=== PATIENT | female | born 1990 | race Caucasian/White ===

== ENCOUNTER 2021-10-16 | Inpatient (IN) | payer OTHER ==
[~2021-10-16] VITALS: Ht 160 cm; Wt 92.1 kg
[2021-10-16 01:40] LABS: HCT 34.6 % (37.0-47.0); HGB 11.1 g/dl (12.5-16.0); MCH 24.1 pg (25.0-31.0); MCHC 32.1 g/dL (32.0-36.0); MCV 75.1 fL (78.0-100.0); RBC 4.61 M/uL (4.20-5.40); RDW 16.8 % (11.5-14.0)
[2021-10-16 01:40] LABS: ECSTASY (MDMA) NEGATIVE (NEGATIVE); MARIJUANA (THC) NEGATIVE (NEGATIVE); METHADONE NEGATIVE (NEGATIVE); OPIATES NEGATIVE (NEGATIVE)
[2021-10-16 01:41] LABS: AMPHETAMINES NEGATIVE (NEGATIVE); BARBITURATES NEGATIVE (NEGATIVE); OXYCODONE NEGATIVE (NEGATIVE)
[2021-10-16 01:42] LABS: BILIRUBIN NEGATIVE (NEGATIVE); BLOOD NEGATIVE Ery/uL (NEGATIVE); CLARITY CLEAR (CLEAR); GLUCOSE (U) NORMAL (NORMAL); LEUKOCYTES NEGATIVE Leu/uL (NEGATIVE); NITRITE NEGATIVE (NEGATIVE); PROTEIN NEGATIVE (NEGATIVE); UROBILINOGEN 0.2 mg/dL (0.2-1.0); pH 6.5 (5.0-9.0)
[2021-10-16 01:46] LABS: COLOR STRAW (YELLOW)
[2021-10-16 02:00] LABS: ALBUMIN 2.7 g/dL (3.4-5.0); BILIRUBIN - TOTAL 0.2 mg/dL (0.2-1.0); BUN/CREAT RATIO (CALC) 15.8 RATIO; CREATININE 0.57 mg/dL (0.51-0.95); GLOBULIN (CALCULATION) 3.9 g/dL; POTASSIUM 3.8 mmol/L (3.5-5.1); TOTAL PROTEIN 6.6 g/dL (6.4-8.2)
[2021-10-16 09:45] LABS: ALBUMIN 2.7 g/dL (3.4-5.0); BILIRUBIN - TOTAL 0.2 mg/dL (0.2-1.0); BUN/CREAT RATIO (CALC) 11.7 RATIO; CREATININE 0.6 mg/dL (0.51-0.95); GLOBULIN (CALCULATION) 3.9 g/dL; POTASSIUM 3.6 mmol/L (3.5-5.1); TOTAL PROTEIN 6.6 g/dL (6.4-8.2)
[2021-10-17 06:25] LABS: HCT 32.5 % (37.0-47.0); HGB 9.9 g/dl (12.5-16.0); MCH 23.3 pg (25.0-31.0); MCHC 30.5 g/dL (32.0-36.0); MCV 76.7 fL (78.0-100.0); MPV 11.6 fL (6.0-9.5); RBC 4.24 M/uL (4.20-5.40); WBC 8.5 K/uL (4.0-10.5)
== END 2021-10-18 15:27 | disposition home or self-care (01) | DRG 806 ==
LOC: FOB
PROVIDERS: Obstetrics & Gynecology; ADMIT Specialist
PROC: 10E0XZZ Delivery of Products of Conception, External Approach (ICD-10-PCS; principal; 2021-10-16)
PROC: 0HQ9XZZ Repair Perineum Skin, External Approach (ICD-10-PCS; 2021-10-16)
PROC: 3E0P7VZ Introduction of Hormone into Female Reproductive, Via Natural or Artificial Opening (ICD-10-PCS; 2021-10-16)
DX: O24.429 Gestational diabetes mellitus in childbirth, unspecified control (principal); D62 Acute posthemorrhagic anemia; Z37.0 Single live birth; O99.214 Obesity complicating childbirth; Z20.822 Contact with and (suspected) exposure to COVID-19; O36.63X0 Maternal care for excessive fetal growth, third trimester, not applicable or unspecified; Z3A.39 39 weeks gestation of pregnancy; O70.0 First degree perineal laceration during delivery; O99.02 Anemia complicating childbirth; D50.9 Iron deficiency anemia, unspecified; O99.892 Other specified diseases and conditions complicating childbirth; D27.9 Benign neoplasm of unspecified ovary
CPT/HCPCS: 36415; 80053; 80305; 81003; 82009; 82947; 86850; 86900; 86901; J2540; J7120; J7121; U0002

== ENCOUNTER → 2022-01-06 | Day surgery (SDC) | payer OTHER ==
[~2022-01-06] VITALS: Ht 160 cm; Wt 82.5 kg
[~2022-01-06] MED LIST: ACETAMINOPHEN500 M1 PO; COLACE100 MG PO; MIRALAX17 GM PO; MOTRIN600 MG PO; OXY-IR 5MG5 MG PO; PRENATAL FORMU1 EACH PO
[2022-01-06 06:21] LABS: HCG (URINE) SCREEN NEGATIVE (NEGATIVE)
== END | disposition home or self-care (01) ==
LOC: FAS 06:03
PROVIDERS: Anesthesiology
DX: K64.8 Other hemorrhoids (principal); K64.4 Residual hemorrhoidal skin tags; E66.9 Obesity, unspecified; Z87.891 Personal history of nicotine dependence
CPT/HCPCS: 84703; J0690; J1100; J1644; J1885; J2250; J2405; J2704; J3010; J7120